=== PATIENT | male | born 1935 | race Caucasian/White ===

== ENCOUNTER 2016-06-25 12:19 | Observation (INO) | payer MEDICARE ==
[2016-06-25 13:13] LABS: ABSOLUTE NEUTROPHIL COUNT 4.7 K/mm3 (1.8-7.7); BASO % 0.5 % (0.2-1.0); EOS # 0.1 (0.0-0.5); EOS % 1.2 % (0.9-2.9); HEMATOCRIT 41.1 % (32.0-52.0); HEMOGLOBIN 13.4 gm/l (14.0-18.0); IMM NEUT% 0.3 % (0-1); LYMPH # 1.8 (1.0-4.8); LYMPH % 23.7 % (15-45); MEAN CELL VOLUME 95.4 fl (80.0-94.0); MEAN CORPUSCULAR HEMOGLOBIN 31.1 pg (27.0-31.0); MEAN CORPUSCULAR HGB CONC 32.6 g/dl (33.0-37.0); MEAN PLATELET VOLUME 9.2 fl (7.4-10.4); MONO # 0.9 (0.0-0.8); MONO % 11.9 % (4-12); NEUT % 62.4 % (43-75); PLATELET COUNT 161 K/mm3 (130-400); RED CELL DISTRIBUTION WIDTH 13.2 % (11.5-14.5)
[2016-06-25 13:16] LABS: ALB/GLOB RATIO 1.5 (>1.0); ALBUMIN 3.6 gm/dL (3.5-5.7); CALCIUM 9.6 mg/dL (8.6-10.3); MAGNESIUM 1.8 mg/dL (1.9-2.7)
--- NOTE | 2016-06-25 13:27 | CT ---
Exam: CT head without contrast COMPARISON: MRI 02/10/2007 INDICATION: Weakness. TECHNIQUE: CT examination of the head was obtained without contrast. FINDINGS: There is no acute intracranial hemorrhage. There is no abnormal intra or extra-axial fluid collection. Cortical rios-white matter differentiation is maintained and there is no mass effect or midline shift. Evidence of remote lacunar infarct is seen within the deep white matter near the left lateral ventricle at the level of the mid convexity. Additional mild periventricular and deep white matter changes are seen, compatible chronic small vessel ischemic changes. Ventricles are normal in size. 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 There is mild mucosal thickening within the right maxillary sinus without significant intrasinus fluid to suggest acute or aggressive sinus pathology. The visualized paranasal sinuses and mastoid air cells are well aerated. IMPRESSION: No acute intracranial hemorrhage or CT evidence for acute ischemia. Report was uploaded to the EMR at 1323 hours 06/25/2016.
[2016-06-25 14:09] LABS: SPECIFIC GRAVITY 1.015 (1.001-1.030); URINE BILIRUBIN NEGATIVE (NEGATIVE); URINE BLOOD NEGATIVE (NEGATIVE); URINE GLUCOSE (UA) NEGATIVE (NEGATIVE); URINE LEUKOCYTE ESTERASE NEGATIVE (NEGATIVE); URINE NITRITE NEGATIVE (NEGATIVE); URINE PROTEIN NEGATIVE (NEGATIVE); URINE UROBILINOGEN NORMAL (0-1 mg/dl)
[2016-06-25 14:17] LABS: URINE APPEARANCE CLEAR; URINE COLOR YELLOW
[2016-06-25 16:25] VITALS: BMI 26.9
[2016-06-25] MEDS ORDERED: ACETAMINOPHEN 325 MG TABLET PO PRN (17:12)
[2016-06-25] MEDS ORDERED: BISACODYL 10 MG SUP PR PRN (17:12)
[2016-06-25] MEDS ORDERED: SODIUM CHLORIDE 0.9% 100 ML IV PRN (17:12)
[2016-06-25] MEDS ORDERED: MENTHOL/CETYLPYRD 1 EACH LOZENGE PO PRN (17:12)
[2016-06-25] MEDS ORDERED: BLISTEX LIPSTICK 1 EACH TP PRN (17:12)
[2016-06-25] MEDS ORDERED: BISACODYL 5 MG TABLET.EC PO PRN (17:12)
[2016-06-25] MEDS ORDERED: MAGNESIUM HYDROXIDE 30 ML UDCUP PO PRN (17:12)
[2016-06-25] MEDS ORDERED: PREDNISONE 10 MG TABLET PO SCH (17:28)
[2016-06-25] MEDS: PREDNISONE 5 MG TABLET PO SCH (17:39)
--- NOTE | 2016-06-25 18:04 | HP ---
ABDULKADIR MEJIA [id number] DATE OF ADMISSION: June 25, 2016 CHIEF COMPLAINT: Weakness. 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 His symptoms seemed to come on suddenly this morning. Patient's was able to get him to a private vehicle with a wheelchair, but he needed two people to assist him to get into the emergency department. Normally he is independent with a walker. He has had a fluctuating course since his hospitalization in March of 2016 on physical therapy through Home Health for the last 60 days. He has had his ups and downs and was expected to graduate from physical therapy this week until he took a downward turn. Workup in the emergency department failed to show any focal diagnosis. CT of the brain did not show any acute abnormality. He was referred to the hospitalist service for observation. REVIEW OF SYSTEMS: Is negative for any fevers or chills. He has had no recent upper respiratory symptoms. He denies cough, chest pain, shortness of breath, or palpitations. There have been no reports of any nausea, vomiting, diarrhea, constipation or abdominal pain. reports he had some bright red blood per rectum a few days ago, but this seems to have stopped and has been attributed to hemorrhoids in the past. He has had no headaches, fainting, blackouts or seizures. No focal weakness. No recent falls. No urinary complaints. His review of systems is otherwise negative. PAST MEDICAL HISTORY: Is significant for: 1. A hospitalization on March 28, 2017 for hemorrhagic knee effusion associated with anticoagulant therapy. Since that time he has had some persistent right knee pain but has been coping. They have been receiving Home Health services off and on as I mentioned. 2. 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 He is not on any anti-Parkinson's medication, and it is unclear if this has been a confirmed diagnosis as it does not appear to be treated. He is not under the care of any neurologist at this time. 3. He does have a history of cerebrovascular disease and had a stroke in June,, with dominant weakness. He has recovered some of his strength. 4. He has a history of prostate cancer diagnosed in 1990 refractory to hormonal therapy and surgical therapy. He is currently on third line therapy followed by Dr. Abraham. 5. The medical record indicates a history of dementia, but this appears to be mild and does not cause significant impairment. No mini-mental status score is on record. 6. 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 7. He has had some swallowing dysfunction, and his has him on a soft mechanical diet with a remote history of aspiration pneumonia. 8. He has a history of hypertension. 9. History of a deep vein thrombosis and a pulmonary embolism back in 2013 and is on chronic anticoagulant therapy as result. 10. He had a ruptured Achilles tendon in 2013 due to fluoroquinolone therapy. 11. He has degenerative disc disease and has had some chronic right knee pain. PAST SURGICAL HISTORY: Significant for: 1. Radical prostatectomy in 1990. 2. He had a bowel perforation with surgery needed after radiation therapy. 3. He had a tonsillectomy and adenoidectomy as a child. 4. He had a left knee surgery in the year 1999. 5. He had a total hip replacement in 2001. 6. He has had multiple bladder and prostate procedures. ALLERGIES: NO KNOWN DRUG ALLERGIES. CURRENT MEDICATIONS: Consist of: 1. Prednisone 5 mg twice daily. 2. Melatonin dose unclear, 1 to 3 mg at bedtime. 3. Calcium carbonate 600/400 units one daily. 4. Iron sulfate 65 mg daily. 5. Tylenol 1000 mg at bedtime. 6. Colace 100 mg daily. 7. Zytiga 1000 mg at bedtime. 8. Atorvastatin 10 mg daily. 9. Reglan 5 mg every morning. 10. Remeron 30 mg every day at bedtime. 11. Lopressor 100 mg twice daily. 12. Multivitamin once daily. 13. Vitamin D3 2000 units daily. 14. Xarelto 20 mg daily. FAMILY HISTORY: Unremarkable. SOCIAL HISTORY: He lives in [place] with his . His son is mentally disabled with schizophrenia and also has health problems. His cares for both of them. They have supportive family. There is no history of alcohol, tobacco or illicit drug use. He is retired from working on the [employer]. His primary care provider is Steve Wu. PHYSICAL EXAMINATION: VITAL SIGNS: Show a temperature of 97.5, pulse 71, blood pressure 137/84, respirations 17, oxygen saturation 93% on room air. Body mass index is 26.9. Weight is 71 kilograms. GENERAL: This is a well-developed, well-nourished male in no acute distress. HEENT: Shows pupils equal, round and reactive to light. Extraocular movements are intact. No oral lesions are present. NECK: Is supple without lymphadenopathy or thyromegaly. CHEST: Lungs are clear to auscultation bilaterally. CARDIOVASCULAR: Exam reveals a regular rate and rhythm without a murmur. ABDOMEN: Is soft, nontender, nondistended with positive bowel sounds. EXTREMITIES: Show no peripheral edema. Dorsalis pedis pulses are 2+ and equal bilaterally. NEUROLOGIC: Exam shows a very faint right-sided weakness involving the right arm and right leg. He also has very faint right eyelid droop but generally his cranial nerves II through XII appear to be intact. DIAGNOSTIC IMAGING STUDIES: Included a CT of the brain which showed no acute abnormality. LABORATORY STUDIES: He had laboratory studies including a CBC showing a white count of 7.4, hemoglobin of 13.4, platelet count of 161,000. Lactate is normal at 1.3. Chemistry profile shows sodium 137, potassium 3.9, BUN 25, creatinine 1.1, glucose 90, magnesium 1.8. Liver function tests are normal. Troponin I is less than 0.01. Albumin is 3.6, globulin is 2.4, TSH is 2.37. Urine is unremarkable. ASSESSMENT: 1. Patient has generalized weakness, unclear etiology. 2. He has a history of chronic essential hypertension. 3. He has a history of late effects of stroke and some chronic dominant weakness/right-sided weakness. 4. He has a history of prostate cancer currently followed by Dr. Abraham. 5. He has a remote history of deep vein thrombosis/pulmonary embolism on Xarelto therapy. PLAN: 1. He is referred to the hospitalist service for observation. 2. We will get another set of cardiac enzymes and labs in the morning. 3. We will get physical therapy and occupational therapy to evaluate and treat the patient. 4. He will get neurologic checks every four hours and will be on telemetry. 5. Further treatment and recommendations will depend on his hospital course. cc: Roxie Wu
[2016-06-25] MEDS: METOPROLOL TARTRATE 50 MG TABLET PO SCH (20:56)
[2016-06-25] MEDS: DOCUSATE SODIUM 100 MG CAPSULE PO SCH (20:56)
[2016-06-25] MEDS ORDERED: ABIRATERONE ACETATE 1000 MG PO SCH (21:00)
[2016-06-25] MEDS ORDERED: ACETAMINOPHEN 500 MG TABLET PO SCH (21:00)
[2016-06-25] MEDS ORDERED: ACETAMINOPHEN 325 MG TABLET PO SCH (21:00)
[2016-06-25] MEDS ORDERED: MELATONIN 1 MG PO SCH (21:00)
[2016-06-25] MEDS ORDERED: MIRTAZAPINE 30 MG TABLET PO SCH (21:00)
[2016-06-25] MEDS ORDERED: MELATONIN 3 MG TABLET PO SCH (21:00)
[2016-06-26 06:05] LABS: ABSOLUTE NEUTROPHIL COUNT 3.4 K/mm3 (1.8-7.7); BASO % 0.3 % (0.2-1.0); EOS # 0.1 (0.0-0.5); EOS % 1.2 % (0.9-2.9); HEMATOCRIT 36.4 % (32.0-52.0); HEMOGLOBIN 12.2 gm/l (14.0-18.0); IMM NEUT% 0.5 % (0-1); LYMPH # 1.7 (1.0-4.8); LYMPH % 28.1 % (15-45); MEAN CELL VOLUME 94.5 fl (80.0-94.0); MEAN CORPUSCULAR HEMOGLOBIN 31.7 pg (27.0-31.0); MEAN CORPUSCULAR HGB CONC 33.5 g/dl (33.0-37.0); MEAN PLATELET VOLUME 9.2 fl (7.4-10.4); MONO # 0.8 (0.0-0.8); MONO % 12.9 % (4-12); PLATELET COUNT 150 K/mm3 (130-400); RED CELL DISTRIBUTION WIDTH 13.2 % (11.5-14.5)
[2016-06-26 06:21] LABS: ALB/GLOB RATIO 1.4 (>1.0); ALBUMIN 3.1 gm/dL (3.5-5.7); CALCIUM 9.2 mg/dL (8.6-10.3)
[2016-06-26] MEDS: PREDNISONE 5 MG TABLET PO SCH (07:57)
[2016-06-26] MEDS ORDERED: ATORVASTATIN CALCIUM 10 MG TABLET PO SCH (09:00)
[2016-06-26] MEDS ORDERED: RIVAROXABAN 10 MG TABLET PO SCH (09:00)
[2016-06-26] MEDS ORDERED: FERROUS SULFATE (65 Fe) 325 MG TABLET PO SCH (09:00)
[2016-06-26] MEDS: DOCUSATE SODIUM 100 MG CAPSULE PO SCH (09:03)
[2016-06-26] MEDS: METOPROLOL TARTRATE 50 MG TABLET PO SCH (09:03)
[2016-06-26 11:11] VITALS: BP 103/65
--- NOTE | 2016-06-26 13:05 | PDOC43 ---
- Subjective Chief Complaint: Weakness Has returned to his baseline per and therapies. Patient has no complaints. - Objective Vital Signs Temperature 97.6 F 06/26/16 11:09 Pulse Rate 69 06/26/16 11:09 Respiratory Rate 16 06/26/16 11:09 Blood Pressure 103/65 06/26/16 11:09 O2 Saturation by Pulse Oximetry 97 06/26/16 11:09 Oxygen Delivery Method Room Air Oxygen Flow Rate 0 Intake and Output 06/25/16 06/26/16 06/27/16 06:59 06:59 06:59 Intake Total 550 Output Total 1228 100 Balance -678 -100 General: Alert, Cooperative, No Acute Distress HEENT: Mucous membr. moist/pink Lungs: Clear to Auscultation Bilaterally Cardiovascular: Regular Rate and Rhythm, Murmur Abdomen: Soft, Normal Bowel Sounds, No Tenderness, No Masses Extremities: Pulses Diminished but Palpable, No Edema Skin: Normal Color Psych/Mental Status: Normal Mood Laboratory 06/26/16 05:15 06/26/16 05:15 06/26/16 05:15 RBC 3.85 L MCV 94.5 H MCH 31.7 H Total Protein 5.3 L Albumin 3.1 L Globulin 2.2 L Current Medications: Current meds reviewed in EMR. - Problems: Assessment/Plan (1) Weakness Status: Acute Assessment/Plan: Acute episode has resolved, may have been a TIA. (2) Dysphagia Qualifiers: Dysphagia type: unspecified Qualifier Code: (R13.10) Dysphagia, unspecified Status: Chronic Assessment/Plan: Continue usual modified diet (3) History of pulmonary embolus (PE) Status: Chronic Assessment/Plan: stable on Rivaroxaban (4) Late effects of CVA (cerebrovascular accident) Status: Chronic Assessment/Plan: Continue home PT (5) Anemia Status: Chronic Assessment/Plan: Chronic and stable (6) H/O prostate cancer Status: Chronic Assessment/Plan: Continue treatment per urology (7) HTN (hypertension) Qualifiers: Hypertension type: essential hypertension Qualifier Code: (I10) Essential (primary) hypertension Status: Chronic Assessment/Plan: well controlled VTE Prophylaxis: rivaroxaban Disposition: discharge home.
== END 2016-06-26 13:50 | disposition home or self-care (01) ==
LOC: ED 12:19 → MS 15:08
PROVIDERS: ADMIT Family Medicine; ATTEND Family Medicine
DX: R53.1 Weakness (principal); I69.351 Hemiplegia and hemiparesis following cerebral infarction affecting right dominant side; I10 Essential (primary) hypertension; Z85.46 Personal history of malignant neoplasm of prostate; Z86.718 Personal history of other venous thrombosis and embolism
CPT/HCPCS: 83605; 85025 ×2; 80053 ×2; 83735; 84153; 81003; 84443; 84484 ×2; 36415; 70450; 97161; 97166; 99285 ×2; 51702; 93005; A9270 ×10